=== PATIENT | female | born 1955 | race African-American/Black ===

== ENCOUNTER 2016-10-21 19:55 | Inpatient (IN) | payer OTHER ==
[~2016-10-21] VITALS: Ht 160 cm; Wt 81.6 kg
[~2016-10-21 19:55] MED LIST: AMLODIPINE BESYL5 MG PO; ASPIRIN81 M2 PO; JANUVIA100 MG PO; LANTUS 10100 UNITS/ SC; LISINOPRIL20 MG PO; METFORMIN HCL1000 MG PO; SIMVASTATIN20 MG PO
[2016-10-21 20:30] LABS: ADD MIUA? YES; BILIRUBIN NEGATIVE; BLOOD SMALL; COLOR YELLOW ((YELLOW)); GLUCOSE (STRIP) NEGATIVE; KETONES NEGATIVE; LEUKOCYTES NEGATIVE; NITRITE NEGATIVE; PROTEIN (STRIP) NEGATIVE; SPECIFIC GRAVITY 1.009 (1.000-1.030); UROBILINOGEN 0.2 MG/DL (0.2-1.0)
[2016-10-21 20:33] LABS: BACTERIA RARE /HPF; EPITHELIAL CELLS 2+ /HPF; MUCUS TRACE /LPF; RED BLOOD CELLS 0-5 /HPF (0-5); UCUL ADDED? NO; WHITE BLOOD CELLS 0-5 /HPF (0-5)
[2016-10-21 20:42] LABS: HEMATOCRIT 38.3 % (36.0-46.0); MCH 32.1 PG (29.0-34.0); MCHC 36.3 G/DL (30.0-36.0); MCV 88.5 FL (83-99); MEAN PLAT.VOLUME 10.5 uM^3 (9.5-12.4); PLATELET COUNT 235 K/uL (156-360); RBC DIS.WIDTH-CV 11.6 % (11.8-14.6); RBC DIS.WIDTH-SD 37.3 % (39-53); RED BLOOD COUNT 4.33 M/uL (3.80-5.20); WHITE BLOOD COUNT 6.3 K/uL (4.1-10.2)
[2016-10-21 20:52] LABS: CHLORIDE 101 mEq/L (99-109); POTASSIUM 3.5 mEq/L (3.7-5.4); SODIUM 141 mEq/L (136-147)
[2016-10-21 20:55] LABS: GLUCOSE 129 mg/dL (70-99)
[2016-10-21 20:56] LABS: ANION GAP 12 MEQ/L (2-14)
[2016-10-21 20:57] LABS: TOTAL BILIRUBIN 0.6 mg/dL (0.0-1.0)
[2016-10-21 20:58] LABS: ALKALINE PHOSPHATASE 92 IU/L (3-129)
[2016-10-21 20:59] LABS: GFR ESTIMATE (CALCULATED) > 59 mL/min/
[2016-10-21 21:00] LABS: UREA NITROGEN (BUN) 8 mg/dL (9-23)
[2016-10-21 22:54] LABS: LIPASE 371 U/L (1.0-51.0)
[2016-10-22] MEDS ORDERED: GABAPENTIN100 MG PO (00:24)
[2016-10-22] MEDS ORDERED: HYDROCODON-ACE1 EAC7 PO (00:24)
[2016-10-22] MEDS ORDERED: COMBIGAN O20 DROP/5 BOTH EYES (00:25)
[2016-10-22] MEDS ORDERED: SIMBRINZA 1%-0.28 ML BOTH EYES (00:25)
[2016-10-22] MEDS ORDERED: IBUPROFEN800 MG PO (00:26)
[2016-10-22 03:33] VITALS: BP 176/85
[2016-10-22 06:37] LABS: POINT-OF-CARE METER ID UU14208753
[2016-10-22 06:41] LABS: EOSINOPHIL (%) 3.5 % (0-5); EOSINOPHIL COUNT 0.2 K/uL (0-0.3); HEMATOCRIT 36.1 % (36.0-46.0); IMMATURE GRANULOCYTE (%) 0.3 % (0.0-0.7); INSTRUMENT ABS NEUTROPHIL CT 2.1 K/uL; LYMPHOCYTE COUNT 3.1 K/uL (1.0-2.8); MCH 31.3 PG (29.0-34.0); MCHC 34.6 G/DL (30.0-36.0); MCV 90.5 FL (83-99); MEAN PLAT.VOLUME 10.6 uM^3 (9.5-12.4); MONOCYTE (%) 13.1 % (3-12); MONOCYTE COUNT 0.8 K/uL (0-0.8); NEUTROPHIL (%) 33.3 % (45-76); NEUTROPHIL COUNT 2.1 K/uL (1.8-6.4); PLATELET COUNT 232 K/uL (156-360); RBC DIS.WIDTH-CV 11.9 % (11.8-14.6); RBC DIS.WIDTH-SD 39.3 % (39-53); RED BLOOD COUNT 3.99 M/uL (3.80-5.20); WHITE BLOOD COUNT 6.2 K/uL (4.1-10.2)
[2016-10-22 07:08] LABS: C-REACTIVE PROTEIN 9.2 MG/L (0-10); MAGNESIUM 1.4 mg/dl (1.3-2.7)
[2016-10-22 07:10] LABS: ALKALINE PHOSPHATASE 67 IU/L (3-129); ANION GAP 10 MEQ/L (2-14); CHLORIDE 103 MEQ/L (99-109); GFR ESTIMATE (CALCULATED) > 59 mL/min/; GLUCOSE 121 mg/dL (70-99); POTASSIUM 3.9 MEQ/L (3.7-5.4); SAMPLE HEMOLYSIS CHECK 0; SAMPLE ICTERIC CHECK 0; SAMPLE LIPEMIA CHECK 0; SODIUM 142 MEQ/L (136-147); TOTAL BILIRUBIN 0.6 MG/DL (0.0-1.0); UREA NITROGEN (BUN) 6 mg/dL (9-23)
[2016-10-22 07:48] VITALS: BP 177/77
[2016-10-22 11:32] VITALS: BP 164/68
[2016-10-22 15:42] VITALS: BP 177/84
[2016-10-22 20:04] VITALS: BP 173/83
[2016-10-23 00:23] VITALS: BP 171/81
[2016-10-23 03:08] VITALS: BP 152/71
[2016-10-23 06:27] LABS: POINT-OF-CARE METER ID UU14188577
[2016-10-23 07:20] VITALS: BP 168/82
[2016-10-23 15:14] VITALS: BP 142/76
[2016-10-23 15:26] LABS: POINT-OF-CARE METER ID UU14188577
[2016-10-23 23:39] VITALS: BP 144/65
[2016-10-24 06:26] LABS: POINT-OF-CARE METER ID UU14208753
[2016-10-24 08:19] VITALS: BP 141/68
[2016-10-24 11:09] LABS: MCH 33.2 PG (29.0-34.0); MCHC 36.9 G/DL (30.0-36.0); MEAN PLAT.VOLUME 10.1 uM^3 (9.5-12.4); PLATELET COUNT 233 K/uL (156-360); RBC DIS.WIDTH-CV 11.9 % (11.8-14.6); RBC DIS.WIDTH-SD 39.5 % (39-53); RED BLOOD COUNT 3.89 M/uL (3.80-5.20); WHITE BLOOD COUNT 5.1 K/uL (4.1-10.2)
[2016-10-24 11:38] LABS: ALKALINE PHOSPHATASE 73 IU/L (3-129); ANION GAP 8 MEQ/L (2-14); CHLORIDE 102 MEQ/L (99-109); GFR ESTIMATE (CALCULATED) > 59 mL/min/; LIPASE 347 U/L (1.0-51.0); POTASSIUM 3.5 MEQ/L (3.7-5.4); SAMPLE HEMOLYSIS CHECK 0; SAMPLE ICTERIC CHECK 0; SAMPLE LIPEMIA CHECK 0; SODIUM 138 MEQ/L (136-147); TOTAL BILIRUBIN 0.6 MG/DL (0.0-1.0); UREA NITROGEN (BUN) 7 mg/dL (9-23)
[2016-10-24 11:39] LABS: GLUCOSE 358 mg/dL (70-99)
[2016-10-24 13:19] LABS: MAGNESIUM 1.3 mg/dl (1.3-2.7)
[2016-10-24] MEDS ORDERED: THIAMINE HCL100 MG PO (14:24)
[2016-10-24] MEDS ORDERED: FOLIC ACID1 MG PO (14:25)
[2016-10-24 16:28] VITALS: BP 170/88
[2016-10-24 16:34] LABS: POINT-OF-CARE METER ID UU14208753
== END 2016-10-24 18:42 | disposition home or self-care (01) | DRG 440 ==
LOC: RME 19:55 → EME 19:55 → EDOF 10-22 02:17 → ENRESERV 10-22 02:19 → 3EAST 10-22 03:27
PROVIDERS: Hospitalist
DX: K85.20 Alcohol induced acute pancreatitis without necrosis or infection (principal); F10.20 Alcohol dependence, uncomplicated; E87.6 Hypokalemia; E11.9 Type 2 diabetes mellitus without complications; I10 Essential (primary) hypertension; G89.29 Other chronic pain; M54.5 Low back pain; M79.606 Pain in leg, unspecified; R74.8 Abnormal levels of other serum enzymes; E78.5 Hyperlipidemia, unspecified; F17.210 Nicotine dependence, cigarettes, uncomplicated; Z91.5 Personal history of self-harm; M88.88 Osteitis deformans of other bones; Z79.4 Long term (current) use of insulin; Z80.0 Family history of malignant neoplasm of digestive organs
CPT/HCPCS: 72100; 74176; 80053; 81003; 82948; 83690; 83735; 85025; 85027; 86140; 99281; 99285; J0360; J1644; J1815; J1885; J2270; J3411; J3475; J7030; J7120